=== PATIENT | male | born 1990 | race Caucasian/White ===

== ENCOUNTER 2021-05-04 22:20 | Emergency (ER) | payer BC, OTHER ==
[~2021-05-04] VITALS: Ht 167.6 cm; Wt 100.0 kg
[2021-05-04 22:44] VITALS: BP 166/88
--- NOTE | 2021-05-05 01:06 | NUR ---
inessa Bennett at bedside for eval
[2021-05-05] MEDS ORDERED: KETOROLAC 60 MG/2 ML ONE (01:21)
[2021-05-05] MEDS ORDERED: OXYcodone/APAP 5/325MG TABLET ONE (01:21)
[2021-05-05] MEDS ORDERED: COLCHICINE 0.6 MG CAPSULE ONE (01:22)
[2021-05-05] MEDS ORDERED: COLCHICINE 0.6 MG CAPSULE PO ONE (01:30)
[2021-05-05] MEDS ORDERED: OXYcodone/APAP 5/325MG TABLET PO ONE (01:30)
[2021-05-05] MEDS ORDERED: KETOROLAC 60 MG/2 ML IM ONE (01:30)
--- NOTE | 2021-05-05 01:54 | NUR ---
pt educated on dc instructions, verbalized undertsanding. taken to dc desk with wheelchair, daysi.
== END 2021-05-05 01:57 | disposition home or self-care (01) ==
LOC: ED 23:59
DX: M13.172 Monoarthritis, not elsewhere classified, left ankle and foot (principal)
CPT/HCPCS: 36415; 84550; 96372; 99283; J1885